=== PATIENT | male | born 1960 | race Caucasian/White ===

== ENCOUNTER 2022-01-23 23:32 | Emergency (ER) | payer SELFPAY ==
[2022-01-24] MEDS ORDERED: Ondansetron ODT 4 MG TAB ONE (00:08)
[2022-01-24] MEDS ORDERED: Lidocaine Viscous Sol 2% 15 ml UD Cup ONE (00:29)
[2022-01-24] MEDS ORDERED: Promethazine HCl 25 MG/ML VIAL ONE (00:29)
[2022-01-24] MEDS ORDERED: Mag-Al Plus 1200 MG/1200 MG/120 MG/30 ML UDCUP ONE (00:29)
[2022-01-24] MEDS ORDERED: Lactated Ringer's 1,000 ML ONE (01:55)
[2022-01-24 02:12] LABS: #Basophils 0.1 thou/uL (0.0-0.2); #Eosinphils 0.1 thou/uL (0.0-0.7); #Lymphocytes 1.1 thou/uL (1.20-3.40); #Monocytes 0.8 thou/uL (0.11-0.59); #Neutrophils 8.9 thou/uL (1.40-6.50); %Basophils 0.8 % (0.0-1.0); %Eosinophils 1.2 % (0.0-10.0); %Lymphocytes 10.2 % (21.0-51.0); %Monocytes 7.4 % (0.0-10.0); %Neutrophils 80.4 % (42.0-75.0); Hemoglobin 15.6 g/dL (14.0-18.0); Mean Corpuscular HGB CONC 32.1 g/dL (32.0-36.0); Mean Corpuscular Hemoglobin 27.9 pg (27.0-31.0); Mean Corpuscular Volume 86.8 fl (78.0-98.0); Mean Platelet Volume 8.7 fL (7.4-10.4); Platelet Count 374 thou/uL (130-400); RBC Distribution Width 14.2 % (11.5-14.5); Red Blood Cell (RBC) Count 5.61 mill/uL (4.70-6.10)
[2022-01-24] MEDS ORDERED: Dicyclomine 20 MG/2 ML VIAL ONE (02:27)
[2022-01-24 02:33] LABS: ALT (SGPT) 23 U/L (8-55); AST (SGOT) 19 U/L (5-34); Albumin 4.1 g/dL (3.4-4.8); Alkaline Phosphatase 78 U/L (40-110); Anion Gap 15 mmol/L (10-20); BUN (Urea Nitrogen) 14 mg/dL (8.4-25.7); Bilirubin, Total 0.4 mg/dL (0.2-1.2); CK (CPK) 179 U/L (30-200); Calc. Creatinine Clearance 0 mL/min (70-130); Calcium 8.8 mg/dL (7.8-10.44); Carbon Dioxide 23 mmol/L (23-31); Chloride 108 mmol/L (98-107); Estimated GFR 98; Globulin 3.4 g/dL (2.4-3.5); Glucose 118 mg/dL (80-115); Lipase 28 U/L (8-78); Potassium 3.9 mmol/L (3.5-5.1); Protein, Total 7.5 g/dL (5.8-8.1); Sodium 142 mmol/L (136-145)
[2022-01-24] MEDS ORDERED: Prochlorperazine 10 MG/2 ML VIAL ONE (02:34)
[2022-01-24] MEDS ORDERED: Famotidine/PF 20 mg/2ml Vial ONE (02:34)
[2022-01-24] MEDS ORDERED: Sodium Chloride 0.9% 50 ML ONE (02:34)
[2022-01-24] MEDS ORDERED: Nitroglycerin 0.4 MG TAB 1 EACH ONE (02:34)
== END 2022-01-24 03:58 | disposition home or self-care (01) ==
LOC: MADERS 23:32
DX: R11.2 Nausea with vomiting, unspecified (principal); J44.9 Chronic obstructive pulmonary disease, unspecified; F17.290 Nicotine dependence, other tobacco product, uncomplicated; Z79.899 Other long term (current) drug therapy
CPT/HCPCS: 71046; 80053; 82550; 83690; 84484; 85025; 93005; 96361; 96365; 96372; 96375; J0780; J2550; J7120; Q0162; S0028